=== PATIENT | male | born 1945 | race Two or more races ===

== ENCOUNTER → 2024-03-10 | Outpatient (CLI) | payer MEDICARE, MEDICAID, SELFPAY ==
[2024-03-10 16:37] LABS: Basophils % (Auto) 1 % (0-2.5); Eosinophils # (Auto) 0.1 Thou/mm3 (0.0-0.5); Eosinophils % (Auto) 3 % (0-10); Hematocrit 39.9 % (41.0-53.0); Hemoglobin 13.2 g/dL (13.5-16.0); Immature Granulocytes % (Auto) 0 % (0-0); Lymphocytes # (Auto) 0.7 Thou/mm3 (1.0-4.8); Lymphocytes % (Auto) 23 % (10-50); Mean Corpuscular HGB Conc 33.1 g/dl (31.0-37.0); Mean Corpuscular Hemoglobin 29.9 pg (25.0-35.0); Mean Corpuscular Volume 91 fL (80-100); Monocytes # (Auto) 0.3 Thou/mm3 (0.0-0.8); Monocytes % (Auto) 10 % (0-12); Neutrophils % (Auto) 63 % (37-80); Nucleated Red Blood Cell % 0 /100 WBC (0); Platelet Count 146 Thou/mm3 (140-440); RDW Standard Deviation 41.8 fL (35.1-43.9); Red Blood Count 4.41 Miln/mm3 (4.50-5.90); White Blood Count 3.2 Thou/mm3 (3.8-10.6)
[2024-03-10 17:09] LABS: Prostate Specific Antigen < 0.10 ng/mL (0-4.00)
[2024-03-10 17:16] LABS: Alanine Aminotransferase 16 U/L (10-49); Albumin, Serum 4.3 gm/dL (3.4-4.8); Alkaline Phosphatase 118 U/L (46-116); Anion Gap 5 (7-16); Aspartate Amino Transferase 19 U/L (0-34); BUN/Creatinine Ratio 18 Ratio (12-20); Bilirubin,Total 0.6 mg/dL (0.3-1.2); Blood Urea Nitrogen 18 mg/dL (9-23); Calcium 9.8 mg/dL (8.3-10.6); Calcium (Corrected) 9.8 mg/dL (8.5-10.1); Carbon Dioxide 28.8 mMol/L (20.0-31.0); Chloride 104 mMol/L (98-107); Globulin 2.2 gm/dL (2.3-3.5); Glucose 96 mg/dL (74-106); Osmolality,Calculated 277 (275-295); Sodium 138 mMol/L (136-145); Total Protein 6.5 gm/dL (5.7-8.2); eGFR > 60 See Note
== END | disposition home or self-care (01) ==
PROVIDERS: PCP Physician Assistant Medical; Referring Provider Internal Medicine Hematology & Oncology; Visit Provider Internal Medicine Hematology & Oncology
DX: D72.819 Decreased white blood cell count, unspecified (principal); D69.6 Thrombocytopenia, unspecified; C61 Malignant neoplasm of prostate
CPT/HCPCS: 36415; 80053; 84153; 85025

== ENCOUNTER 2024-03-12 15:06 | Outpatient (RCR) | payer MEDICARE, MEDICAID, SELFPAY | END 2024-03-28 23:59 | disposition home or self-care (01) | LOC: SCTC 15:06 | PROVIDERS: PCP Physician Assistant Medical; Referring Provider Physician Assistant Medical; Visit Provider Nurse Practitioner Family | DX: C61 Malignant neoplasm of prostate (principal); Z79.818 Long term (current) use of other agents affecting estrogen receptors and estrogen levels; Z86.2 Personal history of diseases of the blood and blood-forming organs and certain disorders involving the immune mechanism; Z92.3 Personal history of irradiation | CPT/HCPCS: 99212; G0463 ==

== ENCOUNTER → 2024-04-13 | Outpatient (CLI) | payer MEDICARE, MEDICAID, SELFPAY ==
[2024-04-13 16:45] LABS: Basophils % (Auto) 1 % (0-2.5); Eosinophils # (Auto) 0.1 Thou/mm3 (0.0-0.5); Eosinophils % (Auto) 4 % (0-10); Hematocrit 38.4 % (41.0-53.0); Hemoglobin 12.6 g/dL (13.5-16.0); Immature Granulocytes % (Auto) 0 % (0-0); Immature Granulocytes Auto 0.01 Thou/mm3 (0.00-0.00); Lymphocytes # (Auto) 0.6 Thou/mm3 (1.0-4.8); Lymphocytes % (Auto) 19 % (10-50); Mean Corpuscular HGB Conc 32.8 g/dl (31.0-37.0); Mean Corpuscular Hemoglobin 30.1 pg (25.0-35.0); Mean Corpuscular Volume 92 fL (80-100); Monocytes # (Auto) 0.3 Thou/mm3 (0.0-0.8); Monocytes % (Auto) 9 % (0-12); Neutrophils # (Auto) 2.2 Thou/mm3 (1.8-7.7); Neutrophils % (Auto) 67 % (37-80); Nucleated Red Blood Cell % 0 /100 WBC (0); Platelet Count 141 Thou/mm3 (140-440); RDW Standard Deviation 41.7 fL (35.1-43.9); Red Blood Count 4.19 Miln/mm3 (4.50-5.90); White Blood Count 3.3 Thou/mm3 (3.8-10.6)
[2024-04-13 16:57] LABS: Prostate Specific Antigen < 0.10 ng/mL (0-4.00)
[2024-04-13 17:00] LABS: Alanine Aminotransferase 19 U/L (10-49); Albumin, Serum 4.6 gm/dL (3.4-4.8); Albumin/Globulin Ratio 2.2 (1.2-2.2); Alkaline Phosphatase 118 U/L (46-116); Anion Gap 6 (7-16); Aspartate Amino Transferase 17 U/L (0-34); BUN/Creatinine Ratio 20 Ratio (12-20); Bilirubin,Total 0.4 mg/dL (0.3-1.2); Blood Urea Nitrogen 22 mg/dL (9-23); Calcium 9.5 mg/dL (8.3-10.6); Calcium (Corrected) 9.5 mg/dL (8.5-10.1); Carbon Dioxide 29.1 mMol/L (20.0-31.0); Chloride 102 mMol/L (98-107); Creatinine (Component) 1.1 mg/dL (0.6-1.3); Globulin 2.1 gm/dL (2.3-3.5); Glucose 98 mg/dL (74-106); Osmolality,Calculated 277 (275-295); Potassium 4.7 mMol/L (3.4-5.1); Sodium 137 mMol/L (136-145); Total Protein 6.7 gm/dL (5.7-8.2); eGFR > 60 See Note
== END | disposition home or self-care (01) ==
LOC: SCTO 15:42
PROVIDERS: PCP Physician Assistant Medical; Referring Provider Internal Medicine Hematology & Oncology; Visit Provider Internal Medicine Hematology & Oncology
DX: D72.819 Decreased white blood cell count, unspecified (principal); D69.6 Thrombocytopenia, unspecified; C61 Malignant neoplasm of prostate
CPT/HCPCS: 36415; 80053; 84153; 85025

== ENCOUNTER 2024-04-14 15:37 | Outpatient (RCR) | payer MEDICARE, MEDICAID, SELFPAY ==
--- NOTE | 2024-04-14 16:20 | CTCFLWUP_ITS ---
[facility] [address], [place] [address] FOLLOW-UP NOTE Date: 04/14/2024 MR#: [id number] Name: KRISTA GARCIA : 1945 Dx: C61 prostate cancer Patient with prostate CA grade 10 (5+5) PSA 19.2. Had XRT to pelvis 4500 prostate 7200 cGy completed 09/25/2022 through 11/26/2022. Patient received concomitant Lupron injections. Patient has been bothered by the hot flashes so decision made to start patient on Relugolix. Most recent PSA less than 0.10 04/13/2024. Patient will be now being followed by Naima COURTNEY/Dr. Haywadr I will see him as needed in future. Electronically signed by: Lefty Sanchez M.D. 04/14/2024 4:18 PM
== END 2024-04-28 23:59 | disposition home or self-care (01) ==
LOC: SCTC 15:37
PROVIDERS: PCP Physician Assistant Medical; Referring Provider Physician Assistant Medical; Visit Provider Radiology Therapeutic Radiology
DX: C61 Malignant neoplasm of prostate (principal); Z92.3 Personal history of irradiation
CPT/HCPCS: 99212; G0463

== ENCOUNTER → 2024-05-22 | Outpatient (CLI) | payer MEDICARE, MEDICAID, SELFPAY ==
--- NOTE | 2024-05-22 12:00 | XR_ITS ---
Examination: Bone densitometry Date and time of exam:May 22, 2024 1140 hours INDICATIONS: 79-year-old male with diagnosis age related osteoporosis, vitamin D and calcium one month Technique: Lumbar spine and hip total bone mineralization values of an calculated. Peak reference and age match control results have been displayed. Findings: Lumbar spine total bone mineralization is0.822 gm/cm2. This is 2.4 standard deviations below peak reference. Hip total bone mineralization is 0.821 gm/cm2 This is 1.8 standard deviations below peak reference. This is 0.7 below age-matched controls Impression: There is osteopenia based on lumbar spine measurements. There is osteoporosis based on hip measurements
== END | disposition home or self-care (01) ==
LOC: CDIM 11:20
PROVIDERS: PCP Physician Assistant Medical; Referring Provider Nurse Practitioner Family; Visit Provider Nurse Practitioner Family
DX: M85.88 Other specified disorders of bone density and structure, other site (principal); M81.0 Age-related osteoporosis without current pathological fracture
CPT/HCPCS: 77080

== ENCOUNTER → 2024-06-25 | Outpatient (CLI) | payer MEDICARE, MEDICAID, SELFPAY ==
[2024-06-25 15:02] LABS: Basophils % (Auto) 1 % (0-2.5); Eosinophils # (Auto) 0.1 Thou/mm3 (0.0-0.5); Eosinophils % (Auto) 3 % (0-10); Hematocrit 39.8 % (41.0-53.0); Hemoglobin 13.3 g/dL (13.5-16.0); Immature Granulocytes % (Auto) 0 % (0-0); Immature Granulocytes Auto 0.01 Thou/mm3 (0.00-0.00); Lymphocytes # (Auto) 0.8 Thou/mm3 (1.0-4.8); Lymphocytes % (Auto) 20 % (10-50); Mean Corpuscular HGB Conc 33.4 g/dl (31.0-37.0); Mean Corpuscular Hemoglobin 29.9 pg (25.0-35.0); Mean Corpuscular Volume 89 fL (80-100); Monocytes # (Auto) 0.4 Thou/mm3 (0.0-0.8); Monocytes % (Auto) 9 % (0-12); Neutrophils # (Auto) 2.7 Thou/mm3 (1.8-7.7); Neutrophils % (Auto) 67 % (37-80); Nucleated Red Blood Cell % 0 /100 WBC (0); Platelet Count 160 Thou/mm3 (140-440); RDW Standard Deviation 40.6 fL (35.1-43.9); Red Blood Count 4.45 Miln/mm3 (4.50-5.90)
[2024-06-25 15:33] LABS: Prostate Specific Antigen < 0.10 ng/mL (0-4.00)
[2024-06-25 15:37] LABS: Alanine Aminotransferase 14 U/L (10-49); Albumin, Serum 4.7 gm/dL (3.4-4.8); Albumin/Globulin Ratio 2.2 (1.2-2.2); Alkaline Phosphatase 107 U/L (46-116); Anion Gap 10 (7-16); Aspartate Amino Transferase 20 U/L (0-34); BUN/Creatinine Ratio 22 Ratio (12-20); Bilirubin,Total 0.5 mg/dL (0.3-1.2); Blood Urea Nitrogen 24 mg/dL (9-23); Calcium 9.9 mg/dL (8.3-10.6); Calcium (Corrected) 9.9 mg/dL (8.5-10.1); Carbon Dioxide 27.5 mMol/L (20.0-31.0); Chloride 102 mMol/L (98-107); Creatinine (Component) 1.1 mg/dL (0.6-1.3); Globulin 2.1 gm/dL (2.3-3.5); Glucose 95 mg/dL (74-106); Osmolality,Calculated 281 (275-295); Potassium 5.1 mMol/L (3.4-5.1); Sodium 139 mMol/L (136-145); Total Protein 6.8 gm/dL (5.7-8.2); eGFR > 60 See Note
== END | disposition home or self-care (01) ==
LOC: SCTO 14:05
PROVIDERS: PCP Physician Assistant Medical; Referring Provider Nurse Practitioner Family; Visit Provider Nurse Practitioner Family
DX: D72.819 Decreased white blood cell count, unspecified (principal); D69.6 Thrombocytopenia, unspecified; C61 Malignant neoplasm of prostate
CPT/HCPCS: 36415; 80053; 84153; 85025

== ENCOUNTER 2024-07-02 14:19 | Outpatient (RCR) | payer MEDICARE, MEDICAID, SELFPAY | END 2024-07-27 23:59 | disposition home or self-care (01) | LOC: SCTC 14:19 | PROVIDERS: PCP Physician Assistant Medical; Referring Provider Physician Assistant Medical; Visit Provider Radiology Therapeutic Radiology | DX: Z08 Encounter for follow-up examination after completed treatment for malignant neoplasm (principal); Z85.46 Personal history of malignant neoplasm of prostate; Z92.3 Personal history of irradiation | CPT/HCPCS: 99213; G0463 ==

== ENCOUNTER 2024-08-13 19:59 | Emergency (ER) | payer MEDICARE, MEDICAID, SELFPAY ==
[2024-08-13 20:00] VITALS: BMI 29.9
--- NOTE | 2024-08-13 21:04 | PD.EDEXREM ---
ED Extremity Problem RME/HPI General Chief complaint: Extremity Problem,Nontraumatic Stated complaint: DIZZINESS, BLE CRAMPING AND TINGLING FOR 2 WEEKS Time Seen by Provider: 08/13/24 20:47 Arrival date/time: 08/13/24 19:59 RME / HPI RME / HPI Narrative: This section includes all my notes and documentations, including HPI, PE, and ED course. Ze Sanchez MD HPI: 80 y/o male with Hx of Atrial Fibrillation, Hypertension, Ulcer, Hemorrhoids, Gastroesophageal Reflux Disease, Renal Disease (no right kidney), Kidney Stones, Benign Prostatic Hyperplasia, Arthritis, MeasleS, Clostridium Difficile, Pacemaker, and smoking presents to ED c/o cramping of the bilateral LE, swelling, and dizziness x 3 weeks. Patient was seen at [facility] and prescribed medication that did not help. He also reports the left shoulder and left arm pain with numbness and tingling. No speech or visual impairment. He also requests help for insomnia. No loss of power in the arms or legs. No chest pain. No other complaints reported. ROS: All negative except as documented in HPI. Physical Exam: General: Alert and oriented. No acute distress when remaining still. Eyes: Conjunctivae and lids clear. EOMI. PERRL. ENT: No nasal congestion. Pharynx normal. Tympanic membrane normal bilaterally. Neck: Supple. No carotid bruit. No JVD. Heart: RRR. Lungs: No respiratory distress. Good air movement. No rhonchi, wheezing, rales. Abdomen: Soft and nontender. Normal bowel sounds. No distension. No rebound or guarding. Back: No CVA tenderness. Legs: No clubbing, cyanosis, edema. Skin: Warm and dry. Neuro: Alert and oriented X 3. Cranial Nerves II-XII grossly intact. No peripheral motor deficits. Musculoskeletal: All major joints and bones are not tender with no limited ROM. I reviewed all diagnostic test results. My interpretation of the EKG is paced rhythm. My interpretation of the chest x-ray is NAD. My interpretation of the left shoulder x-rays is NAD, official radiology report is pending. My review of the head CT report is NAD. My review of the chest/abdomen/pelvis CT report is NAD. My review of the venous Doppler of the legs is no DVT. Blood tests and urine tests unremarkable. At this point, diagnoses include leg cramping, insomnia, left rotator cuff tear Treatment here included IV fluid and Toradol and morphine. Left arm sling applied. . Significant improvement noted. Recommended more outpatient workup. Not yet done: Based on my best medical judgment, made decision no further evaluation or treatment indicated at this time. Patient understands and agrees to the discharge instructions customized and printed, see below. Discharge Instructions from Dr. Sanchez printed for you: 1. Exact cause of your symptoms was not determined. But there is no life-threatening condition such as stroke or heart attack or blood clots. There is no serious infection/condition such as pneumonia or UTI or sepsis or electrolyte abnormalities. 2. To help sleep, take Ativan 1 mg at bedtime as needed. But take only 2-3 times per week to prevent dependence and addiction. 3. For your leg pain/cramping, take cyclobenzaprine as needed. And Tylenol/ibuprofen as needed. 4. Your left arm pain is due to rotator cuff muscle tear, see attached handout. To help healing, wear arm sling for 5 full days then as needed. Apply ice or heat if helpful. 5. See a private doctor outside the ER on 08/17/2024 for recheck and further care. Ask to review all test results and official radiology reports, to make sure you receive all necessary follow-ups and monitoring. For your left rotator cuff muscle tear, ask for MRI imaging to confirm the diagnosis to get the best treatment (MRI not available in the ER). For your leg pain/cramping, ask for referral to see registered travel nurse to make sure there is no serious underlying condition. 6. Seek immediate medical care with worsening or with any concerns. Ze Sanchez MD Related Data Home Medications ?Medication ?Instructions ?Recorded ?Confirmed atorvastatin 40 mg tablet 40 mg PO QPM High Cholesterol 08/19/21 04/09/22 nitroglycerin 0.4 mg sublingual 0.4 mg buccal Q15MIN PRN Angina 08/19/21 04/09/22 tablet lisinopril 10 mg tablet 10 mg PO QDAY 09/20/21 04/09/22 tamsulosin 0.4 mg capsule (Flomax) 0.4 mg PO HS 09/20/21 04/09/22 ciprofloxacin HCl 250 mg tablet 250 mg PO BID 04/06/22 04/09/22 (Cipro) omeprazole 10 mg capsule,delayed 10 mg PO QDAY 04/06/22 04/09/22 release Previous Rx's ?Medication ?Instructions ?Recorded dicyclomine 20 mg tablet 20 mg PO BID PRN pain #30 tabs 03/29/22 simethicone 500 mg capsule 500 mg PO QDAY PRN gas #20 caps 03/29/22 ciprofloxacin HCl 500 mg tablet 500 mg PO BID #14 tabs 03/19/23 (Cipro) phenazopyridine 100 mg tablet 100 mg PO TID #6 tabs 03/19/23 (Pyridium) cyclobenzaprine 5 mg tablet 5 mg PO TID PRN muscle spasm #15 08/14/24 tabs lorazepam 1 mg tablet (Ativan) 1 mg PO .bedtime PRN insomnia #10 08/14/24 tabs Allergies Allergy/AdvReac Type Severity Reaction Status Date / Time Beef Containing Products Allergy Severe Abdominal Verified 08/13/24 20:00 Pain Pork/Porcine Containing Allergy Severe Abdominal Verified 08/13/24 20:00 Products Pain Review of Systems Review of Systems Systems Reviewed: All systems reviewed, normal except as documented Narrative Review of Systems: Refer to HPI above. Past Medical History Past Medical History CARDIAC: Positive Cardiac Disorders, Atrial Fibrillation and Hypertension GASTROINTESTINAL: Positive Gastrointestinal Disorders, Ulcer, Hemorrhoids and Gastroesophageal Reflux Disease GENITOURINARY: Positive Renal Disease (no right kidney), Kidney Stones and Benign Prostatic Hyperplasia MUSCULOSKELETAL: Positive Musculoskeletal Disorders and Arthritis OTHER HISTORY: Positive Measles and Clostridium Difficile Family History FAMILY HISTORY: Positive Family Respiratory Disorders, Family Cardiac Disorders (brother) and Family Surgery Surgical History SURGICAL: Positive Pacemaker Social History SMOKING STATUS: Former smoker ED Exam Narrative Physical exam: Refer to HPI above. Course Quality Measures none Orders Category Date Time Status EKG (ED ONLY) *Do not use* NOW Care 08/13/24 21:13 Completed Saline [Insert IV] NOW Care 08/14/24 00:35 Completed sling [Splint / Immobilizer] STAT Care 08/14/24 02:[address] chest abdomen pelvis wo Stat Exams 08/13/24 21:[address] head/brain wo con Stat Exams 08/13/24 21:13 Completed EKG (ED Only) Stat Exams 08/13/24 21:13 Draft US venous doppler LE BI Stat Exams 08/13/24 21:15 Completed XR chest 1V portable Stat Exams 08/13/24 21:13 Completed XR shoulder LT min 2V Stat Exams 08/14/24 02:22 Taken BNP [B-Type Natriuretic Peptide] Stat Lab 08/13/24 22:14 Completed Bilirubin,Direct Stat Lab 08/13/24 22:14 Completed CBC Stat Lab 08/13/24 22:14 Completed CK [Creatine Kinase] Stat Lab 08/13/24 22:14 Completed CMP [Comprehensive Metabolic Panel] Stat Lab 08/13/24 22:14 Completed CRP [C-Reactive Protein] Stat Lab 08/13/24 22:14 Completed ESR [Sed Rate (ESR)] Stat Lab 08/13/24 22:14 Completed Free T4 (Free Thyroxine) Stat Lab 08/13/24 22:14 Completed Magnesium Stat Lab 08/13/24 22:14 Completed PT [Prothrombin Time with INR] Stat Lab 08/13/24 22:14 Completed PTT [Partial Thromboplastin Time] Stat Lab 08/13/24 22:14 Completed Procalcitonin Stat Lab 08/13/24 22:14 Completed TSH [Thyroid Stimulating Hormone] Stat Lab 08/13/24 22:14 Completed Troponin I Stat Lab 08/13/24 22:14 Completed UA, C/S IF [Urinalysis, C/S if Indicated] Stat Lab 08/13/24 21:49 Completed Ketorolac Inj [Toradol Inj] Med 08/14/24 00:35 Discontinued 15 mg IVP X1 ONE Morphine Inj Med 08/14/24 00:35 Discontinued 2 mg IVP X1 ONE Phenazopyridine HCl [Pyridium] Med 08/13/24 20:48 Discontinued 200 mg PO X1 ONE Sodium Chloride 0.9% 1000 ml [Ns] 1,000 ml Med 08/14/24 00:35 Discontinued IV 999 mls/hr Vital Signs Vital signs: Vital Signs Temperature 98.2 F 08/13/24 21:40 Pulse Rate 69 08/13/24 21:40 Respiratory Rate 17 08/13/24 21:40 Blood Pressure 169/87 H 08/13/24 21:40 Pulse Oximetry (%) 97 08/13/24 21:40 Oxygen Delivery Method Room Air 08/13/24 21:40 Extremity Problem MDM Narrative MDM Narrative:: Scribe Attestation: IMayra am scribing for and in the presence of Dr. Sanchez. Provider Notation: Although this document has been carefully reviewed, there may still be some phonetic and other typographical errors. These errors are purely grammatical due to imperfections in the software program and should not be construed in any way to compromise the substance of the patient's medical care during this visit. Patient data External records reviewed:: [facility] previous records (Reviewed prior ED records from 03/19/23. Patient was seen for Cystitis.) Clinical information provided by:: patient Social determinants that could affect healthcare access:: none Patient has the following chronic illnesses:: Atrial Fibrillation, Hypertension, Ulcer, Hemorrhoids, Gastroesophageal Reflux Disease, Renal Disease (no right kidney), Kidney Stones, Benign Prostatic Hyperplasia, Arthritis, MeasleS, Clostridium Difficile, Pacemaker How is presenting disease/condition affected by chronic disease/condition?: exacerbated by Evaluation data The following diagnostics were reviewed and interpreted by me:: lab results, radiology exam(s) and EKG tracing(s) Lab and/or radiology exams considered but not ordered:: None Interpretation Summary: Musculoskeletal leg cramping and pain, Insomnia, Left rotator cuff tear Medications / Prescriptions Medications or Prescriptions considered but not ordered:: None Medication administrations:: Medication Administration History Discontinued Medications Sodium Chloride (Ns) 1,000 mls @ 999 mls/hr IV .Q1H1M ONE Stop: 08/14/24 01:35 Last Infusion: 08/14/24 03:28 Dose: Infused Documented By: Admin: 08/14/24 01:15 Dose: 999 mls/hr Documented By: LB Ketorolac Tromethamine (Ketorolac Inj 30 Mg/Ml Vial) 15 mg IVP X1 ONE Stop: 08/14/24 00:36 Last Admin: 08/14/24 01:18 Dose: 15 mg Documented By: LB Morphine Sulfate (Morphine Sulf Inj 10 Mg/Ml Vial) 2 mg IVP X1 ONE Stop: 08/14/24 00:36 Last Admin: 08/14/24 01:21 Dose: 2 mg Documented By: LB Phenazopyridine HCl (Phenazopyridine Hcl 100 Mg Tablet) 200 mg PO X1 ONE Stop: 08/13/24 20:49 Last Admin: 08/13/24 21:15 Dose: Not Given Documented By: SE Non-Admin Reason: Cancelled by Provider Morphine, Toradol, NS Consultations Consultation(s) initiated? (list below): No Diagnosis Extremity Problem Differential Diagnosis: gout, cellulitis, superficial thrombophlebitis, deep vein thrombosis of lower extremity and other (CVA, brain tumor, MA, rhabdomyolysis, electrolyte abnormalities) Most likely diagnosis given after review of the tests above:: Musculoskeletal leg cramping and pain, Insomnia, Left rotator cuff tear Admission Indicated Admission indicated?: not indicated Explain why admission is indicated or not indicated:: With significant improvement, there was no indication for admission. Admission Request Was there a request for admission?: No Disposition Plan Disposition Plan: Discharge Discharge Attestation Discharge Attestation: The patient and all family members were given an opportunity to ask questions and understood the discharge instructions. Discharge instructions specifically effects, indications for sooner follow up or return to the emergency department, and the expected course of current diagnosis. Patient condition: Stable Discharge Plan Plan Patient Disposition: HOME (Self Care) Prescriptions/Referrals Prescriptions/Med Rec: New lorazepam [Ativan] 1 mg tablet 1 mg PO .bedtime PRN (Reason: insomnia) Qty: 10 0RF cyclobenzaprine 5 mg tablet 5 mg PO TID PRN (Reason: muscle spasm) Qty: 15 0RF No Action atorvastatin 40 mg tablet 40 mg PO QPM nitroglycerin 0.4 mg tablet, sublingual 0.4 mg BUCCAL Q15MIN PRN (Reason: Angina) lisinopril 10 mg Tablet 10 mg PO QDAY tamsulosin [Flomax] 0.4 mg Capsule 0.4 mg PO HS dicyclomine 20 mg tablet 20 mg PO BID PRN (Reason: pain) Qty: 30 0RF simethicone 500 mg capsule 500 mg PO QDAY PRN (Reason: gas) Qty: 20 0RF ciprofloxacin HCl [Cipro] 250 mg Tablet 250 mg PO BID omeprazole 10 mg Capsule,Delayed Release(Dr/Ec) 10 mg PO QDAY ciprofloxacin HCl [Cipro] 500 mg tablet 500 mg PO BID Qty: 14 0RF phenazopyridine [Pyridium] 100 mg tablet 100 mg PO TID Qty: 6 0RF Referrals: Tonia Rojas PA-C [Primary Care Provider] - In 1 week Problem List Clinical Impression: Musculoskeletal pain, Insomnia, Left rotator cuff tear Patient/Caregiver Discharge Instructions Discharge Activity: activity as tolerated Education Materials: ED Insomnia, ED Myalgias, ED Rotator Cuff Tear Additional Instructions: Discharge Instructions from Dr. Sanchez printed for you: 1. Exact cause of your symptoms was not determined. But there is no life-threatening condition such as stroke or heart attack or blood clots. There is no serious infection/condition such as pneumonia or UTI or sepsis or electrolyte abnormalities. 2. To help sleep, take Ativan 1 mg at bedtime as needed. But take only 2-3 times per week to prevent dependence and addiction. 3. For your leg pain/cramping, take cyclobenzaprine as needed. And Tylenol/ibuprofen as needed. 4. Your left arm pain is due to rotator cuff muscle tear, see attached handout. To help healing, wear arm sling for 5 full days then as needed. Apply ice or heat if helpful. 5. See a private doctor outside the ER on 08/17/2024 for recheck and further care. Ask to review all test results and official radiology reports, to make sure you receive all necessary follow-ups and monitoring. For your left rotator cuff muscle tear, ask for MRI imaging to confirm the diagnosis to get the best treatment (MRI not available in the ER). For your leg pain/cramping, ask for referral to see registered travel nurse to make sure there is no serious underlying condition. 6. Seek immediate medical care with worsening or with any concerns. Instrucciones de karlee del Dr. Sanchez, impresas para usted: 1. No se abreu determinado la causa exacta de archie s?ntomas. Sin embargo, no existe ninguna afecci?n potencialmente mortal, marilu un derrame cerebral, un infarto o co?gulos de meka. No existe ninguna infecci?n o afecci?n grave, marilu neumon?a, infecci?n urinaria, sepsis ni anomal?as electrol?eric. 2. Para conciliar el gael?o, tome Ativan 1 mg antes de acostarse seg?n sea necesario. Su t?almauger solo de 2 a 3 veces por semana para prevenir la dependencia y la adicci?n. 3. Para el dolor o calambres en las piernas, tome ciclobenzaprina seg?n sea necesario. Y Tylenol/ibuprofeno seg?n sea necesario. 4. El dolor en el brazo anna se debe a un desgarro del manguito rotador (consulte el folleto adjunto). Para facilitar la recuperaci?n, use un cabestrillo florecita 5 d?as completos y luego seg?n sea necesario. Aplique hielo o calor si le resulta ?til. 5. Consulte con un m?dico privado fuera de urgencias el 17/08/2024 para vi revisi?n y atenci?n adicional. Solicite la revisi?n de todos los resultados de las pruebas y los informes radiol?gicos oficiales para asegurarse de recibir todos los seguimientos y la monitorizaci?n necesarios. En giovana de desgarro del manguito rotador anna, solicite vi resonancia magn?jairon para confirmar el diagn?stico y recibir el mejor tratamiento (la resonancia magn?jairon no est? disponible en urgencias). En giovana de dolor o calambres en las piernas, solicite vi derivaci?n a un reumat?logo para asegurarse de que no exista vi afecci?n subyacente grave. 6. Busque atenci?n m?dica inmediata si la afecci?n empeora o tiene alguna inquietud. Print Language: Tuvaluan Stand Alone Forms: Lori Award Info., Patient Portal Info Letter
--- NOTE | 2024-08-13 21:13 | EKG_ITS ---
[facility] Test Date: 2024-08-13 Pat Name: KRISTA GARCIA Department: Room: - Gender: Male [employer]: : 1945 Requested By: Ze Thacker Order Number: [id number] Reading MD: Ze Thacker Measurements Intervals [place] Rate: 63 P: 102 AR: 270 QRS: -35 QRSD: 88 T: 17 QT: 395 QTc: 404 Interpretive Statements ELECTRONIC ATRIAL PACEMAKER LEFT AXIS DEVIATION [QRS AXIS < -30] PATTERN CONSISTENT WITH PULMONARY DISEASE Compared to ECG 03/29/2022 16:30:15 No significant changes /store/S0/[id number].pdf
--- NOTE | 2024-08-13 21:13 | XR_ITS ---
Examination: PA chest single view Technique: Upright PA chest single view Exam date and time: August 13, 20242 hrs. Indications: Shortness of breath today. Findings: Mild prominence of ventricle Mild atelectasis left base Transvenous Arleen bipolar cardiac leads satisfactory position Minor atelectasis right base No pneumonia or pulmonary edema Impression: Minor subsegmental atelectasis at the lung bases No pneumonia or pulmonary edema
--- NOTE | 2024-08-13 21:13 | XR_ITS ---
Examination: CT chest, without intravenous contrast. CT abdomen, without intravenous contrast. CT pelvis, without intravenous contrast. 2-D sagittal and coronal reconstructions. 3-D reconstructions. Date and time of exam:August 13, 2024 at 12:00 AM Comparison April 10, 2023 INDICATIONS: Diagnosis malignant neoplasm prostate, chest and abdominal pain today CTDI vol (mgy) 13.7 DLP (MGycm)993 Technique: Multiple CT images, 3.0 mm slice thickness, obtained chest, abdomen, pelvis, with the high-resolution 64 slice scanner.. Sagittal and coronal 2-D reconstructions are obtained. 3-D reconstructions Low dose protocols were performed. One or more of the following dose reduction techniques were used; automated exposure control, adjustment of the mA and/or KV according to patient size, use of iterative reconstruction technique. Findings: Thoracic aortic calcification no aneurysmal dilatation Pulmonary artery segments are not enlarged No paratracheal tracheobronchial or bronchopulmonary adenopathy Comment pleural disease or pulmonary nodules No visualized liver or splenic lesion No gallstones Absent right kidney 1 to 2 mm left renal calculi, no hydronephrosis or ureteral calculi Abundant stool in the right colon Aortic calcification no aneurysmal dilatation No bowel obstruction 18 mm fat-containing umbilical hernia No diverticulitis Urinary bladder is contracted with diffuse wall thickening up to 7 mm No prostatomegaly Prominent osteopenia No osteoblastic metastatic disease IMPRESSION: No mediastinal lymphadenopathy No pneumonia, pulmonary edema or pleural disease Nonobstructing left renal calculi No abdominal or pelvic lymphadenopathy No bowel obstruction Urinary bladder wall is thickened, consider cystitis
--- NOTE | 2024-08-13 21:13 | XR_ITS ---
Examination: CT brain head without contrast. 2-D sagittal coronal reconstructions Date and time of exam:July 11:56 PM Indications: Onset dizziness today CTDI: vol (mGy):53.7 DLP: (mGycm):286 Technique: Multiple CT axial sections of the brain have been obtained, 5 mm slice thickness. Contrast has not been administered. 2-D sagittal, coronal reconstructions have been obtained Low dose protocols were performed. One or more of the following dose reduction techniques were used; automated exposure control, adjustment of the mA and/or KV according to patient size, use of iterative reconstruction technique. Findings: No significant ventricular enlargement. 10 mm x 13 mm calcified mass posterior right cerebral falx axial image 13 sagittal image 25 Intra-axial or extra-axial hemorrhage density is not seen. No mass effect or midline shift Basal cisterns are not remarkable. Fourth ventricle is midline. Cranial vault intact. Impression: Negative for acute hemorrhage, mass effect or midline shift 10 x 13 mm posterior right para falcine calcified mass likely incidental meningioma Consider MRI MRA pre and post contrast follow-up
--- NOTE | 2024-08-13 21:15 | XR_ITS ---
Examination: Venous duplex lower extremity sonogram, bilateral. Date and time of exam: July 1041 hrs. Indications: Leg edema and cramping beginning 2 weeks ago Technique: Multiple sonographic images of the deep venous system have been obtained. B-mode/2-D grayscale imaging of vascular structures and Doppler spectral analysis (waveforms) and color performed Both legs are examined. Findings: Deep venous systems do not demonstrate abnormal echogenicity. All visualized deep veins exhibit compressibility. All visualized deep veins exhibit augmentation. Impression: Negative for deep vein thrombosis
[2024-08-13 21:40] VITALS: BP 169/87; PULSE 69; RESP 17; TEMP 36.8; O2SAT 97
[2024-08-13 22:15] LABS: Collection Type, Urine Clean Catch
[2024-08-13 22:26] LABS: Bilirubin,Urine Negative (Negative); Blood,Urine Negative (Negative); Clarity,Urine Clear (Clear/Hazy); Color,Urine Colorless (Lt Yel-Yel); Culture Indicated,Urine Not Indicated; Glucose, Urine Negative (Negative); Ketones,Urine Negative (Negative); Leukocyte Esterase,Urine Negative (Negative); Nitrite,Urine Negative (Negative); Protein,Urine Negative (Neg - Trace); RBC,Urine < 1 /hpf (0-3); Specific Gravity,Urine 1.007 (1.001-1.035); Squamous Epithelial Cell,Urine < 1 /hpf (0-5); Urobilinogen,Urine Negative mg/dL (0.0-1.0); WBC,Urine < 1 /hpf (0-5)
[2024-08-13 22:43] LABS: Basophils % (Auto) 1 % (0-2.5); Eosinophils # (Auto) 0.2 Thou/mm3 (0.0-0.5); Eosinophils % (Auto) 6 % (0-10); Hematocrit 39.1 % (41.0-53.0); Hemoglobin 13.1 g/dL (13.5-16.0); Immature Granulocytes % (Auto) 0 % (0-0); Lymphocytes # (Auto) 0.9 Thou/mm3 (1.0-4.8); Lymphocytes % (Auto) 23 % (10-50); Mean Corpuscular HGB Conc 33.5 g/dl (31.0-37.0); Mean Corpuscular Hemoglobin 30.3 pg (25.0-35.0); Mean Corpuscular Volume 91 fL (80-100); Monocytes # (Auto) 0.4 Thou/mm3 (0.0-0.8); Monocytes % (Auto) 10 % (0-12); Neutrophils # (Auto) 2.4 Thou/mm3 (1.8-7.7); Neutrophils % (Auto) 60 % (37-80); Nucleated Red Blood Cell % 0 /100 WBC (0); Platelet Count 132 Thou/mm3 (140-440); RDW Standard Deviation 41.2 fL (35.1-43.9); Red Blood Count 4.32 Miln/mm3 (4.50-5.90); White Blood Count 3.9 Thou/mm3 (3.8-10.6)
[2024-08-13 22:53] LABS: Sed Rate (ESR) 7 mm/hr (0-20)
[2024-08-13 22:54] LABS: Partial Thromboplastin Time 25.4 Seconds (22.0-36.0)
[2024-08-13 22:56] LABS: B-Type Natriuretic Peptide < 20 pg/mL (0-100)
[2024-08-13 23:23] LABS: Alanine Aminotransferase 11 U/L (10-49); Albumin, Serum 4.4 gm/dL (3.4-4.8); Albumin/Globulin Ratio 1.8 (1.2-2.2); Alkaline Phosphatase 111 U/L (46-116); Anion Gap 8 (7-16); Aspartate Amino Transferase 20 U/L (0-34); BUN/Creatinine Ratio 22 Ratio (12-20); Bilirubin,Direct 0.1 mg/dL (0.0-0.3); Bilirubin,Total 0.5 mg/dL (0.3-1.2); Blood Urea Nitrogen 26 mg/dL (9-23); C-Reactive Protein < 0.5 mg/dL (0.0-0.9); Calcium 9.6 mg/dL (8.3-10.6); Calcium (Corrected) 9.6 mg/dL (8.5-10.1); Carbon Dioxide 26.2 mMol/L (20.0-31.0); Chloride 105 mMol/L (98-107); Creatine Kinase 77 U/L (34-171); Creatinine (Component) 1.2 mg/dL (0.6-1.3); Estimated Creatinine Clearance 47.5 mL/min (>60); Free T4 (Free Thyroxine) 1.18 ng/dL (0.89-1.76); Globulin 2.4 gm/dL (2.3-3.5); Glucose 99 mg/dL (74-106); Magnesium 2.3 mg/dL (1.6-2.6); Osmolality,Calculated 282 (275-295); Potassium 4.9 mMol/L (3.4-5.1); Procalcitonin 0.07 ng/ml (0.0-0.49); Sodium 139 mMol/L (136-145); Thyroid Stimulating Hormone 3.63 uIU/mL (0.55-4.78); Total Protein 6.8 gm/dL (5.7-8.2); Troponin I < 0.020 ng/mL (0.0-0.045); eGFR > 60 See Note
--- NOTE | 2024-08-14 00:30 | PRELIM_ITS ---
CT scan of the head without intravenous contrast (axial sections with 3D, sagittal and coronal reformats) August 13, 2024 2356 hours Clinical history: dizziness Findings: There is no evidence of intracranial hemorrhage, wedge shaped acute infarct or midline shift. There are mild periventricular white matter hypodensities, likely representing chronic small vessel ischemia. There is mild volume loss. 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 The calvarium is unremarkable. Mild mucosal thickening is seen in the left maxillary sinus. The mastoid air cells and the other visualized paranasal sinuses are clear. Impression: No evidence of intracranial hemorrhage, wedge shaped acute infarct or midline shift. Chronic small vessel ischemia and volume loss. 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
[2024-08-14 00:33] VITALS: BP 164/82; PULSE 62; RESP 18; TEMP 36.7; O2SAT 95
[2024-08-14] MEDS: SODIUM CHLORIDE 0.9% 1000 ML 1,000 ML 999 ML IV (01:15)
[2024-08-14] MEDS: KETOROLAC INJ 30 MG/ML VIAL 15 MG IVP (01:18)
[2024-08-14] MEDS: MORPHINE SULF INJ 10 MG/ML VIAL 2 MG IVP (01:21)
[2024-08-14 02:00] VITALS: BP 164/78; PULSE 60; RESP 18; O2SAT 98
--- NOTE | 2024-08-14 02:13 | PRELIM_ITS ---
CT scan of the chest, abdomen and pelvis without intravenous contrast (axial sections with sagittal and coronal reformats) August 13, 2024 2358 hours Clinical History: Chest and abdominal pain No prior study is available for comparison. Findings: The lungs are clear. There is no pleural effusion or pneumothorax. The aorta is unremarkable on this noncontrast study. No evidence of mediastinal mass or lymphadenopathy. There is no pericardial effusion.A cardiac pacing device is identified in the left chest wall with its leads in the right atrium and right ventricle. The right kidney is surgically absent. Nonobstructing left renal calculi are seen, the largest measuring 2 mm in the left kidney. The liver, gallbladder, spleen, pancreas, adrenals are unremarkable on this noncontrast study. Moderate amount of fecal material is present in the colon. No evidence of bowel dilatation. The appendix is within normal limits. The urinary bladder is not well distended with apparent wall thickening. There is no free fluid or free air. Small fat containing umbilical hernia is noted. The bones are osteopenic. Osseous degenerative changes are noted. Impression: No evidence of acute intrathoracic, intraabdominal or pelvic pathology on this noncontrast study. Other findings as described above. Report Electronically Signed By: Troy Winters 08/14/2024 2:12:02 AM [EST]
--- NOTE | 2024-08-14 02:22 | XR_ITS ---
Examination: Shoulder,left, 3 views Technique: Shoulder AP internal rotation, AP external rotation, Y view shoulder, 3 views Exam date and time :August 14, 2024 1438 hrs. Indications: Left shoulder pain 10 years. Findings: Advanced osteoarthritis glenohumeral joint No shoulder fracture or dislocation No calcific tendinitis Impression: Advanced osteoarthritis glenohumeral joint
[2024-08-14 03:36] VITALS: BP 161/78; PULSE 89; RESP 19; TEMP 36.7; O2SAT 99
== END 2024-08-14 03:37 | disposition home or self-care (01) ==
PROVIDERS: Emergency Provider Emergency Medicine; PCP Physician Assistant Medical
DX: G47.00 Insomnia, unspecified (principal); M75.102 Unspecified rotator cuff tear or rupture of left shoulder, not specified as traumatic; R06.02 Shortness of breath; R60.0 Localized edema; R25.2 Cramp and spasm; R42 Dizziness and giddiness; R10.9 Unspecified abdominal pain; R94.31 Abnormal electrocardiogram [ECG] [EKG]; I10 Essential (primary) hypertension; I48.91 Unspecified atrial fibrillation; Z87.891 Personal history of nicotine dependence; Z95.0 Presence of cardiac pacemaker
CPT/HCPCS: 36415; 70450; 71045; 71250; 73030; 74176; 80053; 81001; 82248; 82550; 83735; 83880; 84145; 84439; 84443; 84484; 85025; 85379; 85610; 85652; 85730; 86140; 93005; 93970; 96360; 96361; 99284; J1885; J2270; J7030

== ENCOUNTER → 2024-12-31 | Outpatient (CLI) | payer MEDICARE, MEDICAID, SELFPAY ==
[2024-12-31 12:21] LABS: Prostate Specific Antigen 0.20 ng/mL (0-4.00)
== END | disposition home or self-care (01) ==
PROVIDERS: PCP Physician Assistant Medical; Referring Provider Radiology Therapeutic Radiology; Visit Provider Radiology Therapeutic Radiology
DX: D72.819 Decreased white blood cell count, unspecified (principal); D69.6 Thrombocytopenia, unspecified; C61 Malignant neoplasm of prostate
CPT/HCPCS: 36415; 84153

== ENCOUNTER 2025-01-05 14:52 | Outpatient (RCR) | payer MEDICARE, MEDICAID, SELFPAY ==
--- NOTE | 2025-01-05 15:52 | CTCFLWUP_ITS ---
[facility] [address] [place], [place] [address] FOLLOW-UP NOTE Date: 01/05/2025 MR#: [id number] Name: KRISTA GARCIA : 1945 Dx: C61 prostate CA Identification. Patient with prostate cancer received pelvis prostate radiation 7200 cGy completed 11/26/2022. 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 Received concurrent Lupron injections. This was initiated 07/16/2022 had about a years worth due to problems of hot flashes and other side effects decision made to start patient on Relugolix. Did not like the side effects either and wished to stop all treatments and continue with surveillance. At the time PSA was 0.1012 2725. Most recent PSA 12/31/2024 was 0.20. Patient is clearly failing biochemically and needs to be back on hormone manipulation. Did not like the oral medication Relugolix and states that he preferred to be back on the Lupron injections. Did not wish to be on second-generation antiandrogens unless Lupron alone does not work. Will schedule him for Lupron injections as well as check the labs in 3 months. Told patient to be back on Citracal twice daily. Patient's bone densitometry 05/22/2024 revealed osteopenia based on both lumbar and hip measurements. Cc: NORMAN Romano [facility] Electronically signed by: Lefty Sanchez M.D. 01/05/2025 3:49 PM
== END 2025-01-26 23:59 | disposition home or self-care (01) ==
LOC: SCTC 14:52
PROVIDERS: PCP Physician Assistant Medical; Referring Provider Physician Assistant Medical; Visit Provider Radiology Therapeutic Radiology
DX: C61 Malignant neoplasm of prostate (principal); M85.89 Other specified disorders of bone density and structure, multiple sites
CPT/HCPCS: 99213; G0463

== ENCOUNTER 2025-02-24 15:30 | Outpatient (RCR) | payer MEDICARE, MEDICAID, SELFPAY | END 2025-02-26 23:59 | disposition home or self-care (01) | LOC: SCTC 15:30 | PROVIDERS: PCP Physician Assistant Medical; Referring Provider Physician Assistant Medical; Visit Provider Radiology Therapeutic Radiology | DX: Z51.11 Encounter for antineoplastic chemotherapy (principal); C61 Malignant neoplasm of prostate; Z92.3 Personal history of irradiation; M85.89 Other specified disorders of bone density and structure, multiple sites | CPT/HCPCS: 96402; J9217 ==